=== PATIENT | female | born 1995 | race Caucasian/White ===

== ENCOUNTER 2023-04-29 22:34 | Emergency (ER) | payer MEDICAID ==
[~2023-04-29] VITALS: Ht 160 cm; Wt 116.5 kg
[2023-04-29 22:55] VITALS: BP 119/59; O2SAT 99
[2023-04-30] MEDS ORDERED: ACETAMINOPHEN 325MG TABLET PO STA (00:30)
[2023-04-30] MEDS ORDERED: CYCL5TAB PO (01:46)
[2023-04-30] MEDS ORDERED: ALBU18HF2 IH (01:46)
[2023-04-30] MEDS ORDERED: NAPR-681 PO (01:46)
[2023-04-30 02:19] VITALS: PULSE 75; RESP 20; TEMP 97.8
== END 2023-04-30 02:20 | disposition home or self-care (01) ==
LOC: ER 22:34
DX: S93.401A Sprain of unspecified ligament of right ankle, initial encounter (principal); S20.219A Contusion of unspecified front wall of thorax, initial encounter; J45.909 Unspecified asthma, uncomplicated; W01.0XXA Fall on same level from slipping, tripping and stumbling without subsequent striking against object, initial encounter; Y93.89 Activity, other specified; Y92.89 Other specified places as the place of occurrence of the external cause; Y99.8 Other external cause status
CPT/HCPCS: 71045; 73610; 81025; 99284